=== PATIENT | male | born 1990 | race Caucasian/White ===

== ENCOUNTER 2024-01-20 14:29 | Outpatient (CLI) | payer MEDICAID ==
[2024-01-20 15:01] LABS: ALBUMIN 4.9 g/dL (3.2-5.5); ALBUMIN/GLOBULIN RATIO 1.8 (1.0-2.2); ALKALINE PHOSPHATASE 63 IU/L (42-121); ALT ALANINE AMINOTRANSFERASE 11 IU/L (10-60); AST ASPARTATE AMINOTRANSFERASE 17 IU/L (10-42); BILIRUBIN,TOTAL 0.6 mg/dL (0.2-1.0); BUN - BLOOD UREA NITROGEN 19 mg/dL (6-20); CALCIUM 10.3 mg/dL (8.5-10.3); CARBON DIOXIDE - CO2 29 mmol/L (21-32); CHLORIDE 105 mmol/L (101-111); CHOL/HDL RATIO 3.7 (<5.0); CHOLESTEROL 176 mg/dL; CREATININE 0.9 mg/dL (0.6-1.3); GFR - MDRD 98 (>89); GLUCOSE 95 mg/dL (74-104); HDL CHOLESTEROL 47 mg/dL; LDL CHOLESTEROL,CALCULATED 103 mg/dL; LDL/HDL RATIO 2.2 (<3.6); POTASSIUM 3.9 mmol/L (3.5-4.5); SODIUM 141 mmol/L (135-145); TOTAL PROTEIN 7.6 g/dL (6.4-8.9); TRIGLYCERIDES 128 mg/dL (48-352); VLDL CHOLESTEROL 26 mg/dL
[2024-01-20 15:05] LABS: BASOPHILS # (AUTO) 0.1 10^3/uL (0.0-0.1); BASOPHILS % (AUTO) 0.6 %; EOSINOPHILS # (AUTO) 0.2 10^3/uL (0.0-0.7); EOSINOPHILS % (AUTO) 1.6 %; HCT - HEMATOCRIT 43.1 % (42.0-52.0); HGB - HEMOGLOBIN 14.4 g/dL (14.0-18.0); LYMPHOCYTES # (AUTO) 2.4 10^3/uL (1.5-3.5); LYMPHOCYTES % (AUTO) 22.8 %; MEAN CORPUSCULAR HEMOGLOBIN 28.4 pg (27.0-31.0); MEAN CORPUSCULAR HGB CONC 33.4 g/dL (32.0-36.0); MEAN PLATELET VOLUME 12.8 fL (7.4-11.4); MONOCYTES # (AUTO) 0.9 10^3/uL (0.0-1.0); MONOCYTES % (AUTO) 8.6 %; NEUTROPHILS % (AUTO) 66.2 %; PLT - PLATELET COUNT 196 10^3/uL (130-450); RED BLOOD COUNT 5.07 10^6/uL (4.70-6.10); RED CELL DISTRIBUTION WIDTH 12.9 % (12.0-15.0); WHITE BLOOD COUNT 10.5 x10^3/uL (4.8-10.8)
[2024-01-20 15:12] LABS: THYROID STIMULATING HORMONE 1.26 uIU/mL (0.34-5.60)
== END 2024-01-20 14:30 | disposition home or self-care (01) ==
LOC: LAB 14:29
PROVIDERS: ATTEND Nurse Practitioner Family
DX: G40.909 Epilepsy, unspecified, not intractable, without status epilepticus (principal)
CPT/HCPCS: 36415; 80053; 80061; 83721; 84443; 85025

== ENCOUNTER 2024-01-26 14:00 | Outpatient (CLI) | payer MEDICAID ==
[2024-01-26] MEDS ORDERED: iohexoL-300 100 ML VIAL ONE (14:06)
[2024-01-26] MEDS: iohexoL-300 100 ML VIAL IVP ONE (14:46)
--- NOTE | 2024-01-26 15:09 | CT Report ---
PROCEDURE: Head WO INDICATIONS: hx of seizures TECHNIQUE: Noncontrast 4.5 mm thick angled axial sections acquired from the foramen magnum to the vertex. For r adiation dose reduction, the following was used: automated exposure control, adjustment of mA and/or kV according to patient size. COMPARISON: None. FINDINGS: Image quality: Excellent. CSF spaces: Basal cisterns are patent. No extra-axial fluid collections. Ventricles are normal in size and shape. Brain: No midline shift. No intracranial masses or hemorrhage. Dyer-white matter interface is norm al. Skull and face: Calvarium and visualized facial bones are intact, without suspicious lesions. Sinuses: Visualized sinuses and mastoids are clear. IMPRESSION: No cause for patient's symptoms is identified. No acute intracranial pathology. Reviewed by: Cl Sage MD on 01/26/2024 3:07 PM PDT Approved by: Cl Sage MD on 01/26/2024 3:07 PM PDT Station ID: [id number]
--- NOTE | 2024-01-26 17:15 | XRAY Report ---
Lumbar Spine 2-3V HISTORY: 33 years of age, HX OF LOW BACK PAIN TECHNIQUE: Lumbar Spine 2-3V COMPARISON: None. FINDINGS/IMPRESSION: Minimal dextrocurvature of the lumbar spine. Mild retrolisthesis of L3 on L4, L4-L5. Grade 1 anteroli sthesis of L5 on S1. Vertebral body heights are well-maintained. Intervertebral disc space is well-ma intained. No significant lumbar facet arthropathy. Extruded contrast is seen in the collecting system. Reviewed by: Yanique Tavares MD on 01/26/2024 5:14 PM PDT Approved by: Yanique Tavares MD on 01/26/2024 5:14 PM PDT Station ID: [id number]
--- NOTE | 2024-01-26 17:58 | CT Report ---
PROCEDURE: Head W INDICATIONS: HX OF SEIZURES CONTRAST: 100ml [id number] TECHNIQUE: 4.5 mm thick angled axial sections acquired from the foramen magnum to the vertex after the administr ation of intravenous contrast. For radiation dose reduction, the following was used: automated expo sure control, adjustment of mA and/or kV according to patient size. COMPARISON: Correlation is made with noncontrast head CT, 01/26/2024. FINDINGS: Image quality: Diagnostic CSF Spaces: Basal cisterns are patent. No extra-axial fluid collections. Ventricles are normal in size and shape. Brain: No midline shift. No intracranial bleeds or masses. No abnormal intracranial enhancement. Dyer-white interface appears normal. Skull and face: Calvarium and visualized facial bones appear intact, without suspicious lesions. Sinuses: Visualized sinuses and mastoids are clear. IMPRESSION: On these postcontrast images, no masses or abnormal enhancement can be seen. Reviewed by: Jeffrey Andino MD on 01/26/2024 4:57 PM AKDT Approved by: Jeffrey Andino MD on 01/26/2024 4:57 PM AKDT Station ID: [id number]
== END 2024-01-26 14:01 | disposition home or self-care (01) ==
LOC: DI 14:00
PROVIDERS: ATTEND Nurse Practitioner Family
DX: M43.16 Spondylolisthesis, lumbar region (principal); R56.9 Unspecified convulsions
CPT/HCPCS: 70450; 70460; 72100; Q9967